=== PATIENT | female | born 1945 | race Caucasian/White ===

== ENCOUNTER 2023-01-22 00:26 | Day surgery (SDC) | payer MEDICARE, MEDICAID, SELFPAY ==
[2023-01-16 10:55] VITALS: BMI 31.1
--- NOTE | 2023-01-16 11:05 | PC.NURSE ---
Report to the Outpatient Waiting Room, entrance under the green pavilion located off [facility], at time __0830 on date __01/22/23 . Planned Procedure Time: __1030 . Time changes happen often and if your time is changed the preop area will call you the afternoon before. - You and your visitor will be asked to self-screen and do not enter if you have any COVID symptoms. - A mask is optional within the hospital at this time. Patients may have clear liquids (water, carbonated beverages, clear teas, apple juice) until 3 hours prior to surgery (0730 AM) with a maximum of 20 ounces. - No food from midnight until time of surgery - Infants may have breast milk until 4 hours before surgery, infant formula 6 hours prior to surgery. - Children will be allowed to drink immediately following surgery. If applicable, please bring a bottle or sippy cup to assist with drinking. Juice, water, soda, and popsicles are readily available. For infants on formula, please bring formula the day of surgery. Pacifiers are allowed. Take the following medications with a SIP of water the morning of surgery: N/A DO NOT STOP ANY OF YOUR OTHER PRESCRIPTION MEDICATIONS PRIOR TO SURGERY ?EXCEPT THE FOLLOWING Medications to discontinue per physician N/A Date to take last dose Please no make-up, nail syriac, hairspray, perfume, deodorant, or body powder the day of surgery. No jewelry (including any body piercings) or valuables the day of surgery, leave them at home. Please take a shower or bath the night before, or the morning of, surgery with an antibacterial soap. Wear comfortable, loose fitting clothing. Children are encouraged to wear pajamas. - Jewelry must be removed prior to entering the operating room. Rings and piercings that are not removed may be cut off. - The hospital will not accept responsibility for valuables. - Please leave all valuables, including medications, at home the day of surgery. If you are going home after surgery, a licensed truss driver helper must drive you home. - NO public transportation without another adult if you receive anesthesia. - We recommend that an adult stay with you for 24 hours following discharge. - We also recommend that you do not drive, make important decision, drink alcoholic beverages, or take any drugs that were not prescribed by your health care provider for at least 24 hours after your discharge time. For Pediatric surgeries, we recommend two adults accompany the child home. Follow any additional instructions given to you from your surgeon. If you or anyone in your household have experienced Covid symptoms in the past week, please notify your surgeon or the nurse liaison at the phone number below for possible testing. Telephone instructions given to ____PT and asked if any additional questions and then verbalized understanding. Patient advised to call surgeon office or pre surgery nurse liaison [phone] if any additional questions.
--- NOTE | 2023-01-21 09:01 | PM.IMHP ---
H&P: HPI History of Present Illness Date/Time: 01/21/23 09:01 Chief Complaint: D and C hysteroscopy Narrative: She is here today for scheduled D and C hysteroscopy and removal of lesion if present. Her history is significant for having a CT scan due to some abdominal pain and it showed prominence in the uterus. She had subsequent ultrasound which showed a 1.6 cm growth in the cervix. Distal cervix. This could not be visualized on exam. She has not had any postmenopausal bleeding. She was recommended for hysteroscopy for visualization of the lesion and removal if present possible dilation and curettage. Review of Systems Review of Systems: All systems reviewed & are unremarkable except as noted in HPI and below Cardiovascular: Cardiovascular: Reports no additional cardiovascular complaints, Denies chest pain and Denies dyspnea Respiratory: Respiratory: Reports no additional respiratory complaints and Denies dyspnea Gastrointestinal: Gastrointestinal: Reports abdominal pain, Denies change in bowel habits, Denies diarrhea, Denies nausea and Denies vomiting Genitourinary: Genitourinary: Reports pelvic pain Musculoskeletal: Musculoskeletal: Reports back pain Integumentary/Breasts: Skin/Breast: Reports system reviewed and no additional complaints, except as docu Neurologic: Reports system reviewed and no additional complaints, except as documented [facility] Past Medical History Medical History History of one miscarriage Hypertension Surgical History Surgical History History of cholecystectomy [place] teeth removed Family History Family History Other Depression Diabetes mellitus Social History Social History Smoking status: Never smoker Second hand tobacco smoke exposure: No Alcohol intake: current Alcohol use details: 5-6 DRINKS/YEAR Substance use: never Substance use type: does not use Living arrangements: alone Spiritual care concerns: No Meds Home Medications and Allergies Home Medications Medication Instructions Recorded Confirmed Type escitalopram oxalate 10 mg tablet 10 mg PO DAILY 12/26/22 01/16/23 History (Lexapro) metoprolol succinate 25 mg 25 mg PO HS 01/16/23 01/16/23 History tablet,extended release 24 hr Allergies Allergy/AdvReac Type Severity Reaction Status Date / Time Sulfa (Sulfonamide AdvReac Mild Rash Verified 01/16/23 10:53 Antibiotics) tramadol AdvReac Mild EXTREAM Verified 01/16/23 10:53 ABD PAIN/CRAMPING Exam Const: Orientation/consciousness: oriented to person and oriented to place HENMT: Head: normal to inspection Eyes: General: appearance normal, both eyes and all related structures Resp: Effort & Inspection: normal respiratory effort Auscultation: clear to auscultation bilaterally Cardio: Rate: regular rate Rhythm: regular rhythm GI: Inspection: normal to inspection GI Palp: No Rebound tenderness present Neuro: General: oriented to person and oriented to place Cognition (Neuro): normal cognition Extrem: General: normal to inspection Psych: Appearance: grossly normal and well kempt Assessment and Plan Assessment and plan (1) Abnormal finding on ultrasound: Code(s): R93.89 - Abnormal findings on diagnostic imaging of other specified body structures Status: Acute Assessment and Plan: Will proceed with diagnostic hysteroscopy removal lesion if present and dilation and curettage possible.
[2023-01-22] MEDS: LACTATED RINGERS 1,000 ML 30 ML IV CONT (08:45)
[2023-01-22] MEDS: ACETAMINOPHEN 500 MG TABLET 1000 MG PO (08:45)
[2023-01-22 09:17] VITALS: BP 139/60; PULSE 66; RESP 16; TEMP 36.4; O2SAT 100
--- NOTE | 2023-01-22 10:07 | P.PNAN_ITS ---
Anes - Initial Pre Proc Eval Procedure: Operation Date: 01/22/23 10:30 Proposed Procedures p Hysteroscopy Dilation and Curettage with Removal of Any Endometrial Lesion if Necessary - Fili Shine MD Date/Time: 01/22/23 10:07 Surgeon: Fili Shine MD Pre Op Diagnosis: abnormal US findings Patient Data Age: 77 Gender: F Height: 1.52 m Weight: 74.6 kg Last Vital Signs Temp 97.5 F L 01/22/23 09:17 Pulse 66 01/22/23 09:17 Resp 16 01/22/23 09:17 BP 139/60 01/22/23 09:17 Pulse Ox 100 01/22/23 09:17 O2 Del Method Room Air 01/22/23 09:17 Allergies Allergy/AdvReac Type Severity Reaction Status Date / Time ketorolac AdvReac Severe Abdominal Verified 01/22/23 09:51 Pain Sulfa (Sulfonamide AdvReac Mild Rash Verified 01/22/23 09:15 Antibiotics) Home Medications Medication Instructions Recorded Confirmed Type escitalopram oxalate 10 mg tablet 10 mg PO DAILY 12/26/22 01/22/23 History (Lexapro) metoprolol succinate 25 mg 25 mg PO HS 01/16/23 01/22/23 History tablet,extended release 24 hr Patient hx anesthesia problems: none Family hx anesthesia problems: none Results Review: All pre-operative results and documents have been reviewed as part of the pre- operative evaluation. COUNTS INCLUDE 234 BEDS AT THE [facility] Past Medical History Medical History History of one miscarriage Hypertension Surgical History Surgical History History of cholecystectomy [place] teeth removed Family History Family History Other Depression Diabetes mellitus Social History Social History Smoking status: Never smoker Second hand tobacco smoke exposure: No Alcohol intake: current Alcohol use details: 5-6 DRINKS/YEAR Substance use: never Substance use type: does not use Living arrangements: alone Spiritual care concerns: No Anes - Eval Final PreProcedure Day of Procedure 01/22/23 10:07 Patient weight: obese Heart: regular rate and rhythm Lungs: clear to auscultation Airway: Mallampati scale class II Neurological: alert and oriented Last oral intake: >/= 8 hours ASA classification: III Emergent: no Anesthetic plan: proceed Anesthesia type and monitoring: general GIVS and standard monitoring Results Review: All pre-operative results and documents have been reviewed as part of the pre- operative evaluation. Informed Consent: The patient's anesthetic plan and its attendant risks and benefits were discussed with the patient/family/POA. Questions were solicited and answers provided to the satisfaction of the patient/family/POA.
--- NOTE | 2023-01-22 10:19 | WPDHPUPDATE1 ---
History and Physical Update Update Date/Time: 01/22/23 10:19 History and Physical has been reviewed, including an updated exam of the patient. There are NO changes in the patient's condition. Risks, benefits, and alternatives have been discussed and questions answered. Patient agrees to proceed with procedure.
[2023-01-22] MEDS: ceFAZolin 2 GM/D5W 50 ML 2 GM/50 ML BAG IVPB (10:43)
--- NOTE | 2023-01-22 10:46 | PM.OP ---
Procedure Note - Brief Procedure Note - Brief Date of procedure: 01/22/23 abnormal US findings Post-op diagnosis: Same Surgeon: Fili Shine MD Anesthesia: MAC and local Findings: normal uterine cavity, sound to 6 cm, small endocervical polyp mid cervix, insufflation defecit < 60cc, large amount on floor Estimated blood loss (mL): 5 Drains: No Packing: No Pathology: Yes (scant endometrial currettings, endocervical polyp) Complications: No immediate complications Disposition: Same day
[2023-01-22] MEDS: LIDOCAINE HCL 1% LOCAL INJ 20 ML VIAL 10 ML INFILTRATE (10:56)
[2023-01-22 11:12] VITALS: BP 125/69; PULSE 69; RESP 14; O2SAT 98
--- NOTE | 2023-01-22 11:31 | P.OP_ITS ---
Procedure Note - Detailed Date of Procedure 01/22/23 Pre-op Diagnosis abnormal US findings Post-op Diagnosis Other (Endo cervical polyp) Procedure Performed Diagnostic hysteroscopy removal of endocervical polyp with of [place] and dilation and curettage Surgeon Fili Shine MD Anesthesia MAC and Local Indications Ultrasound with 1.6 cm lesion at the upper cervical canal Findings Uterus was sounded to 6 cm the uterine cavity was normal and atrophic appearing there was noted to be a cervical polyp at the middle cervix which was removed. Fluid deficit 60 cc less then since a moderate amount was on the floor. Description of Procedure After informed consent was obtained patient was taken to operating room adequate IV sedation was administered she was placed in low lithotomy position and prepped and draped in sterile fashion attention was turned to the vagina speculum inserted single-tooth tenaculum placed on anterior lip of the cervix 10 cc of 1% lidocaine was injected at the cervical vaginal interface at 2:58 a.m. and 10 position. The uterus was sounded to 6 cm. The hysteroscope was inserted and using hydro dilation the hysteroscope was advanced to the cavity which was normal. There was noted to be a polyp that was consistent with ultrasound findings mid cervix. A curettage was performed to see if this would get the small polyp. Scant or minimal tissue obtained with the curettage is expected. The polyp was not visualized the hysteroscope was inserted again and the polyp was there also attempted to remove with the stone forceps which did not retrieve the polyp. Therefore the of Aveta blade was used and the polyp was removed. The single-tooth tenaculum was removed hemostasis was noted the patient tolerated procedure well and was taken to recovery in stable condition. Estimated Blood Loss -5.0 Drains No Packing No Pathology Yes (Scant minimal endometrial curettings and aveta shavings of endocervical polyp) Complications No immediate complications Condition Stable Disposition Same day [facility] Billing Surgery - Charge Forward: Surgery Billing
[2023-01-22 11:40] VITALS: BP 125/69; PULSE 69; RESP 14; O2SAT 98
[2023-01-22 12:10] VITALS: BP 147/76; PULSE 64; RESP 18; O2SAT 98
== END 2023-01-22 12:15 | disposition home or self-care (01) ==
PROVIDERS: PCP Family Medicine; Visit Provider Obstetrics & Gynecology
PROC: 0U5B8ZZ Destruction of Endometrium, Via Natural or Artificial Opening Endoscopic (ICD-10-PCS; CPT 58563; principal; 2023-01-22 10:30)
DX: N84.1 Polyp of cervix uteri (principal); I10 Essential (primary) hypertension; E66.9 Obesity, unspecified; Z68.32 Body mass index [BMI] 32.0-32.9, adult
CPT/HCPCS: 58558; 88305; A9270; J0690; J2405; J2704; J3010; J7120